=== PATIENT | female | born 1995 | race Caucasian/White ===

== ENCOUNTER 2017-11-06 18:41 | Observation (INO) | payer MEDICAID ==
[2017-11-06] MEDS ORDERED: Ketorolac 30 MG/ML SDV IVPUSH ONE (19:08)
[2017-11-06] MEDS ORDERED: Sodium Chloride 0.9% 1,000 ML IV ONE (19:08)
--- NOTE | 2017-11-06 19:16 | EDM.PDOC ---
ED HPI GENERAL MEDICAL PROBLEM - General Chief Complaint: General Stated Complaint: VOMITING, BODY ACHES Time Seen by Provider: 11/06/17 18:53 Source of Information: Reports: Patient, Family History Limitations: Reports: No Limitations - History of Present Illness INITIAL COMMENTS - FREE TEXT/NARRATIVE: HISTORY AND PHYSICAL: History of present illness: 22-year-old female presenting to emergency department with chief complaint of generalized body aches, fever, nausea and vomiting 5 days. Patient is accompanied by her mother states that her boyfriend brought her to her today and it they are homeless. She has been in bed for the past 5 days. Patient states for the past 5 days she's had intermittent nausea and vomiting approximately 2-3 times a day. No blood in vomitus. She is a also subjective fevers and chills. States that she is at generalized body aches specifically in her back and ribs. She denies any diarrhea but does feel somewhat constipated. She denies any recent foreign travel, or change in diet. She has been taking Advil and Motrin for headache and fever. States that the Motrin seems to be helping. States that she has had a urinary tract infection before and this may be the etiology of her symptoms. However she thinks she may have the flu. Patient currently denies any chest pain, palpitations, shortness breath, syncopal episodes, focal neurologic deficits. 1951- CBC shows leukocytosis of 18,000. Blood cultures have been taken. 1 g of Rocephin ordered. UA positive for significant urinary tract infection. Review of systems: As per history of present illness and below otherwise all systems reviewed and negative. Past medical history: As per history of present illness and as reviewed below otherwise noncontributory. Surgical history: As per history of present illness and as reviewed below otherwise noncontributory. Social history: No reported history of drug or alcohol abuse. Family history: As per history of present illness and as reviewed below otherwise noncontributory. Physical exam: HEENT: Atraumatic, normocephalic, pupils reactive, negative for conjunctival pallor or scleral icterus, mucous membranes moist, throat clear, neck supple, nontender, trachea midline. Lungs: Clear to auscultation, breath sounds equal bilaterally, chest nontender. Heart: S1S2, regular, negative for clicks, rubs, or JVD. Abdomen: Soft, nondistended, nontender. Negative for masses or hepatosplenomegaly. Mild bilateral CVA tenderness Pelvis: Stable nontender. Genitourinary: Deferred. Rectal: Deferred. Extremities: Atraumatic, negative for cords or calf pain. Neurovascular unremarkable. Neuro: Awake, alert, oriented. Cranial nerves II through XII unremarkable. Cerebellum unremarkable. Motor and sensory unremarkable throughout. Exam nonfocal. Diagnostics: CBC, CMP, UA/UC, chest x-ray, hCG, influenza Therapeutics: 1 L normal saline, 1 g Rocephin, 30 mg IV Toradol 1 Impression: Pyelonephritis Sepsis Keep kidney injury/dehydration ] Plan: [] Definitive disposition and diagnosis as appropriate pending reevaluation and review of above. Treatments HEEL ATTACHER: Reports: NSAIDS Other Treatments HEEL ATTACHER: Motrin head Pain Score (Numeric/FACES): 5 body Pain Score (Numeric/FACES): 5 - Related Data Allergies Allergy/AdvReac Type Severity Reaction Status Date / Time No Known Allergies Allergy Verified 11/06/17 19:00 Home Meds: Home Meds . [No Known Home Meds] 11/06/17 [History] Past Medical History - Past Health History Medical/Surgical History: Denies Medical/Surgical History Social & Family History - Family History Family Medical History: Noncontributory - Tobacco Use Smoking Status *Q: Current Every Day Smoker Years of Tobacco use: 5 Packs/Tins Daily: 1 - Recreational Drug Use Recreational Drug Use: No Course - Vital Signs Last Recorded V/S: Last Vital Signs Temp 97.5 F 11/06/17 18:58 Pulse 120 H 11/06/17 18:58 Resp 18 11/06/17 18:58 BP 105/64 11/06/17 18:58 Pulse Ox 99 11/06/17 18:58 - Orders/Labs/Meds Orders: Active Orders 24 hr Category Date Time Status CXR [Chest 2V] [CR] Stat Exams 11/06/17 19:09 Ordered CULTURE BLOOD [BC] Stat Lab 11/06/17 19:55 Ordered CULTURE BLOOD [BC] Stat Lab 11/06/17 19:55 Ordered CULTURE URINE [RM] Stat Lab 11/06/17 19:40 Ordered HCG QUALITATIVE,URINE [URCHEM] Stat Lab 11/06/17 19:40 Ordered INFLUENZA A+B AG SCREEN [RM] Stat Lab 11/06/17 19:40 Ordered LACTATE WITH REFLEX [BG] Stat Lab 11/06/17 19:55 Ordered UA W/MICROSCOPIC [URIN] Stat Lab 11/06/17 19:40 Ordered Sodium Chloride 0.9% [Normal Saline] 1,000 ml Med 11/06/17 19:08 Active IV STAT cefTRIAXone [Rocephin in Dextrose,Iso-Osm 1 GM/50 ML] 1 Med 11/06/17 19:55 Ordered gm Premix Bag 1 bag IV ONETIME Blood Culture x2 Reflex Set [OM.PC] Stat Oth 11/06/17 19:55 Ordered Medication Orders Sodium Chloride (Normal Saline) 1,000 mls @ 999 mls/hr IV STAT ONE Stop: 11/06/17 20:08 Last Admin: 11/06/17 19:19 Dose: 999 mls/hr Ceftriaxone Sodium/Dextrose 1 (gm/ Premix) 50 mls @ 100 mls/hr IV ONETIME ONE Stop: 11/06/17 20:24 Labs: Laboratory Tests 11/06/17 11/06/17 11/06/17 Range/Units 19:16 19:16 19:40 WBC 18.27 H (4.0-11.0) K/uL RBC 4.11 L (4.30-5.90) M/uL Hgb 12.5 (12.0-16.0) g/dL Hct 36.6 (36.0-46.0) % MCV 89.1 (80.0-98.0) fL MCH 30.4 (27.0-32.0) pg MCHC 34.2 (31.0-37.0) g/dL RDW Std Deviation 43.3 (28.0-62.0) fl RDW Coeff of Nicole 13 (11.0-15.0) % Plt Count 252 (150-400) K/uL MPV 10.60 (7.40-12.00) fL Add Manual Diff YES Neutrophils % (Manual) 75 (48.0-80.0) % Band Neutrophils % 1 % Lymphocytes % (Manual) 7 L (16.0-40.0) % Monocytes % (Manual) 16 H (0.0-15.0) % Eosinophils % (Manual) 1 (0.0-7.0) % Nucleated RBC % 0.0 /100WBC Absolute Seg Neuts 13.7 H (1.4-5.7) Band Neutrophils # 0.2 Lymphocytes # (Manual) 1.3 (0.6-2.4) Monocytes # (Manual) 2.9 H (0.0-0.8) Eosinophils # (Manual) 0.2 (0.0-0.7) Nucleated RBCs # 0 K/uL Sodium 136 (136-145) mmol/L Potassium 3.8 (3.5-5.1) mmol/L Chloride 102 (98-107) mmol/L Carbon Dioxide 22.1 (21.0-32.0) mmol/L BUN 15 (7.0-18.0) mg/dL Creatinine 1.5 H (0.6-1.0) mg/dL Est Cr Clr Drug Dosing 58.84 mL/min Estimated GFR (MDRD) 43.0 ml/min Glucose 146 H (74-106) mg/dL Calcium 8.7 (8.5-10.1) mg/dL Total Bilirubin 0.5 (0.2-1.0) mg/dL AST 23 (15-37) IU/L ALT 22 (14-63) IU/L Alkaline Phosphatase 113 (46-116) U/L Total Protein 6.9 (6.4-8.2) g/dL Albumin 2.4 L (3.4-5.0) g/dL Globulin 4.5 H (2.0-3.5) g/dL Albumin/Globulin Ratio 0.5 L (1.3-2.8) Urine Color YELLOW Urine Appearance CLOUDY Urine pH 6.0 (5.0-8.0) Ur Specific [place] 1.025 (1.001-1.035) Urine Protein 100 (NEGATIVE) mg/dL Urine Glucose (UA) NEGATIVE (NEGATIVE) mg/dL Urine Ketones TRACE H (NEGATIVE) mg/dL Urine Occult Blood MODERATE (NEGATIVE) Urine Nitrite NEGATIVE (NEGATIVE) Urine Bilirubin NEGATIVE (NEGATIVE) Urine Urobilinogen 0.2 (<2.0) EU/dL Ur Leukocyte Esterase LARGE (NEGATIVE) Urine RBC 1-2 (0-2/HPF) Urine WBC TO NUMEROU (0-5/HPF) Ur Epithelial Cells FEW (NONE-FEW) Urine Bacteria 1+ H (NEGATIVE) Urine HCG, Qual (NEGATIVE) 06/04/18 Range/Units 19:40 WBC (4.0-11.0) K/uL RBC (4.30-5.90) M/uL Hgb (12.0-16.0) g/dL Hct (36.0-46.0) % MCV (80.0-98.0) fL MCH (27.0-32.0) pg MCHC (31.0-37.0) g/dL RDW Std Deviation (28.0-62.0) fl RDW Coeff of Nicole (11.0-15.0) % Plt Count (150-400) K/uL MPV (7.40-12.00) fL Add Manual Diff Neutrophils % (Manual) (48.0-80.0) % Band Neutrophils % % Lymphocytes % (Manual) (16.0-40.0) % Monocytes % (Manual) (0.0-15.0) % Eosinophils % (Manual) (0.0-7.0) % Nucleated RBC % /100WBC Absolute Seg Neuts (1.4-5.7) Band Neutrophils # Lymphocytes # (Manual) (0.6-2.4) Monocytes # (Manual) (0.0-0.8) Eosinophils # (Manual) (0.0-0.7) Nucleated RBCs # K/uL Sodium (136-145) mmol/L Potassium (3.5-5.1) mmol/L Chloride (98-107) mmol/L Carbon Dioxide (21.0-32.0) mmol/L BUN (7.0-18.0) mg/dL Creatinine (0.6-1.0) mg/dL Est Cr Clr Drug Dosing mL/min Estimated GFR (MDRD) ml/min Glucose (74-106) mg/dL Calcium (8.5-10.1) mg/dL Total Bilirubin (0.2-1.0) mg/dL AST (15-37) IU/L ALT (14-63) IU/L Alkaline Phosphatase (46-116) U/L Total Protein (6.4-8.2) g/dL Albumin (3.4-5.0) g/dL Globulin (2.0-3.5) g/dL Albumin/Globulin Ratio (1.3-2.8) Urine Color Urine Appearance Urine pH (5.0-8.0) Ur Specific [place] (1.001-1.035) Urine Protein (NEGATIVE) mg/dL Urine Glucose (UA) (NEGATIVE) mg/dL Urine Ketones (NEGATIVE) mg/dL Urine Occult Blood (NEGATIVE) Urine Nitrite (NEGATIVE) Urine Bilirubin (NEGATIVE) Urine Urobilinogen (<2.0) EU/dL Ur Leukocyte Esterase (NEGATIVE) Urine RBC (0-2/HPF) Urine WBC (0-5/HPF) Ur Epithelial Cells (NONE-FEW) Urine Bacteria (NEGATIVE) Urine HCG, Qual NEGATIVE (NEGATIVE) Meds: Medications Generic Name Dose Route Start Last Admin Trade Name Freq PRN Reason Stop Dose Admin Sodium Chloride 1,000 mls @ 999 mls/hr 11/06/17 19:08 11/06/17 19:19 Normal Saline IV 11/06/17 20:08 999 mls/hr STAT ONE Administration Ceftriaxone Sodium/Dextrose 1 50 mls @ 100 mls/hr 11/06/17 19:55 gm/ Premix IV 11/06/17 20:24 ONETIME ONE Discontinued Medications Generic Name Dose Route Start Last Admin Trade Name Freq PRN Reason Stop Dose Admin Ketorolac Tromethamine 30 mg 11/06/17 19:08 11/06/17 19:19 Toradol IVPUSH 11/06/17 19:09 30 mg ONETIME ONE Administration Departure - Discharge Information Referrals: PCP,None [Primary Care Provider] - Forms: ED Department Discharge - My Orders Last 24 Hours: My Active Orders 11/06/17 19:08 Sodium Chloride 0.9% [Normal Saline] 1,000 ml IV STAT 11/06/17 19:09 CXR [Chest 2V] [CR] Stat 11/06/17 19:40 CULTURE URINE [RM] Stat HCG QUALITATIVE,URINE [URCHEM] Stat INFLUENZA A+B AG SCREEN [RM] Stat UA W/MICROSCOPIC [URIN] Stat 11/06/17 19:55 CULTURE BLOOD [BC] Stat CULTURE BLOOD [BC] Stat LACTATE WITH REFLEX [BG] Stat cefTRIAXone [Rocephin in Dextrose,Iso-Osm 1 GM/50 ML] 1 gm Premix Bag 1 bag IV ONETIME Blood Culture x2 Reflex Set [OM.PC] Stat - Assessment/Plan Last 24 Hours: My Active Orders 11/06/17 19:08 Sodium Chloride 0.9% [Normal Saline] 1,000 ml IV STAT 11/06/17 19:09 CXR [Chest 2V] [CR] Stat 11/06/17 19:40 CULTURE URINE [RM] Stat HCG QUALITATIVE,URINE [URCHEM] Stat INFLUENZA A+B AG SCREEN [RM] Stat UA W/MICROSCOPIC [URIN] Stat 11/06/17 19:55 CULTURE BLOOD [BC] Stat CULTURE BLOOD [BC] Stat LACTATE WITH REFLEX [BG] Stat cefTRIAXone [Rocephin in Dextrose,Iso-Osm 1 GM/50 ML] 1 gm Premix Bag 1 bag IV ONETIME Blood Culture x2 Reflex Set [OM.PC] Stat
[2017-11-06] MEDS ORDERED: cefTRIAXone 1 GM in Premix Bag 1 BAG IV ONE (19:55)
[2017-11-07] MEDS ORDERED: Acetaminophen 325 MG Tab PO PRN (01:28)
[2017-11-07] MEDS: Sodium Chloride 0.9% 1,000 ML IV SCH ×3 (03:29→19:58)
[2017-11-07] MEDS ORDERED: Sodium Chloride 0.9% 1,000 ML IV ONE (07:21)
[2017-11-07] MEDS ORDERED: Ondansetron 4 MG/2 ML SDV IVPUSH PRN (07:51)
[2017-11-07] MEDS ORDERED: Ketorolac 15 MG/ML SDV IVPUSH PRN (08:12)
--- NOTE | 2017-11-07 08:14 | PCM.HP ---
H&P History of Present Illness - General Date of Service: 11/07/17 Admit Problem/Dx: Admission Diagnosis/Problem Admission Diagnosis/Problem Pyelonephritis Source of Information: Patient, Family (Mother at bedside) History Limitations: Reports: No Limitations - History of Present Illness Initial Comments - Free Text/Narative: This 22 year old female with pmh of methamphetamine and Klonipin use presented to the ED last night with her mother with complaints of not feeling well since with nausea/vomiting, fevers, chills, body aches and flank pain. She reports this all started last and progressively worsened. Per report, she is homeless and her boyfriend brought her to her mother's reporting she had been in bed since not feeling well. She reports some lower abdominal pain and flank pain. She denies chest pain or SOB. Slight chest tightness with breathing but no wheezing. She reports some lower abdominal pain, some dysuria, no constipation or diarrhea. She reports bilateral flank pain and lower rib pain. No headaches or URI symptoms. She denies any other medical history besides asthma in which she uses albuterol, but she currently is out of. She does report using meth and Klonipin recreationally in the last year, but not recently. She currently is being mointored with transdermal patches for drug use. She smokes 1/2-1 ppd, but has not smoked since and declines any cessation medications currently. No alcohol use. In the ED leukocytosis noted at 18,000, lactate 1.7, BUN 15, Cr 1.5 UA neg nitritie, large leukocyte esterase, WBC too numerous to count +1 bacteria, neg HCG. CXR negative. Abd/Pelvis CT revealed R perinephric stranding, no stones or hydronephrosis noted. Influenza negative. She was treated with Rocephin 1 gm IV , 1 L NS bolus. UC and BC pending. She was noted to be slightly hypotensive with tachycardia. Afebrile. She was admitted observation for acute pyelonephritis. head Pain Score (Numeric/FACES): 5 body Pain Score (Numeric/FACES): 1 - Related Data Allergies/Adverse Reactions: Allergies Allergy/AdvReac Type Severity Reaction Status Date / Time No Known Allergies Allergy Verified 11/06/17 19:00 Home Medications: Home Meds . [No Known Home Meds] 11/06/17 [History] Past Medical History - Past Health History Medical/Surgical History: Denies Medical/Surgical History Cardiovascular History: 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. Denies: Afib, Blood Clots/VTE/DVT, High Cholesterol, Hypertension, [place] Respiratory History: Reports: Asthma Gastrointestinal History: 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. Denies: GERD Genitourinary History: 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. Denies: Chronic Renal Insuffiency 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 History: 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 Neurological History: 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. Denies: CVA, TIA Psychiatric History: Reports: Addiction (Currently being monitored for methamphetamine use), Anxiety, Depression Endocrine/Metabolic History: 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. Denies: Diabetes, Type II - Infectious Disease History Infectious Disease History: 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 - Past Surgical History Respiratory Surgical History: 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 GI Surgical History: 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 Social & Family History - Family History Family Medical History: Noncontributory - Tobacco Use Smoking Status *Q: Current Every Day Smoker Years of Tobacco use: 5 Packs/Tins Daily: 0.5 Month/Year Tobacco Last Used: 11-02-2017 Smoking Cessation Information Provided To Patient: Yes Second Hand Smoke Exposure: Yes - Caffeine Use Caffeine Use: Reports: Coffee - Alcohol Use Alcohol Use History: No - Recreational Drug Use Recreational Drug Use: Yes Drug Use in Last 12 Months: Yes Recreational Drug Type: Reports: Methamphetamine Recreational Drug Use Frequency: Not Used In Over 3 Months Recreational Drug Route: Denies: Intravenous - Living Situation & Occupation Living situation: Reports: Single, Other (reports being homeless.) Occupation: Unemployed H&P Review of Systems - Review of Systems: Review Of Systems: See Below General: Reports: Fever, Chills, Malaise, Weakness, Fatigue, Decreased Appetite HEENT: Reports: No Symptoms. Denies: Headaches, Post Nasal Drip, Sinus Congestion, Visual Changes Pulmonary: Reports: No Symptoms. Denies: Shortness of Breath, Wheezing, Cough, Sputum Cardiovascular: Reports: No Symptoms. Denies: Chest Pain, Palpitations, Lightheadedness Gastrointestinal: Reports: Abdominal Pain (lower abdomen), Nausea, Vomiting. Denies: Black Stool, Bloody Stool, Diarrhea Genitourinary: Reports: Dysuria, Burning, Pain, Urgency, Flank Pain. Denies: Hematuria 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: Reports: No Symptoms Skin: Reports: No Symptoms Psychiatric: Reports: No Symptoms Neurological: Reports: No Symptoms Hematologic/Lymphatic: Reports: No Symptoms Immunologic: Reports: No Symptoms Exam - Exam Exam: See Below - Vital Signs Vital Signs: Last Vital Signs Temp 98.6 F 11/07/17 07:30 Pulse 109 H 11/07/17 07:30 Resp 16 11/07/17 07:30 BP 110/71 11/07/17 07:30 Pulse Ox 100 11/07/17 07:30 Weight: 71.532 kg - Exam Quality Assessment: DVT Prophylaxis. No: Supplemental Oxygen General: Alert, Oriented, Cooperative HEENT: Conjunctiva Clear, Mucosa Moist & [place], Posterior Pharynx Clear Neck: Supple, Trachea Midline, 2 Lungs: Clear to Auscultation, Normal Respiratory Effort. No: Wheezing Cardiovascular: Regular Rate, Regular Rhythm GI/Abdominal Exam: Normal Bowel Sounds, Soft, Tender (slightly tender to lower abdomen) Back Exam: Normal Inspection, Full Range of Motion, CVA Tenderness (L), CVA Tenderness (R) Extremities: Normal Inspection, Normal Range of Motion, Non-Tender, No Pedal Edema, Normal Capillary Refill Skin: Warm, Dry, Intact Neurological: Cranial Nerves Intact Neuro Extensive - Mental Status: Alert, Oriented x3, Normal Mood/Affect Neuro Extensive - Motor, Sensory, Reflexes: CN II-XII Intact Psychiatric: Alert, Normal Affect, Normal Mood - Patient Data Lab Results Last 24 hrs: Laboratory Results - last 24 hr 11/06/17 11/06/17 11/06/17 Range/Units 19:16 19:16 19:40 WBC 18.27 H (4.0-11.0) K/uL RBC 4.11 L (4.30-5.90) M/uL Hgb 12.5 (12.0-16.0) g/dL Hct 36.6 (36.0-46.0) % MCV 89.1 (80.0-98.0) fL MCH 30.4 (27.0-32.0) pg MCHC 34.2 (31.0-37.0) g/dL RDW Std Deviation 43.3 (28.0-62.0) fl RDW Coeff of Nicole 13 (11.0-15.0) % Plt Count 252 (150-400) K/uL MPV 10.60 (7.40-12.00) fL Add Manual Diff YES Neutrophils % (Manual) 75 (48.0-80.0) % Band Neutrophils % 1 % Lymphocytes % (Manual) 7 L (16.0-40.0) % Monocytes % (Manual) 16 H (0.0-15.0) % Eosinophils % (Manual) 1 (0.0-7.0) % Nucleated RBC % 0.0 /100WBC Absolute Seg Neuts 13.7 H (1.4-5.7) Band Neutrophils # 0.2 Lymphocytes # (Manual) 1.3 (0.6-2.4) Monocytes # (Manual) 2.9 H (0.0-0.8) Eosinophils # (Manual) 0.2 (0.0-0.7) Nucleated RBCs # 0 K/uL Lactate (0.20-2.00) mmol/L Sodium 136 (136-145) mmol/L Potassium 3.8 (3.5-5.1) mmol/L Chloride 102 (98-107) mmol/L Carbon Dioxide 22.1 (21.0-32.0) mmol/L BUN 15 (7.0-18.0) mg/dL Creatinine 1.5 H (0.6-1.0) mg/dL Est Cr Clr Drug Dosing 58.84 mL/min Estimated GFR (MDRD) 43.0 ml/min Glucose 146 H (74-106) mg/dL Calcium 8.7 (8.5-10.1) mg/dL Total Bilirubin 0.5 (0.2-1.0) mg/dL AST 23 (15-37) IU/L ALT 22 (14-63) IU/L Alkaline Phosphatase 113 (46-116) U/L Total Protein 6.9 (6.4-8.2) g/dL Albumin 2.4 L (3.4-5.0) g/dL Globulin 4.5 H (2.0-3.5) g/dL Albumin/Globulin Ratio 0.5 L (1.3-2.8) Urine Color YELLOW Urine Appearance CLOUDY Urine pH 6.0 (5.0-8.0) Ur Specific [place] 1.025 (1.001-1.035) Urine Protein 100 (NEGATIVE) mg/dL Urine Glucose (UA) NEGATIVE (NEGATIVE) mg/dL Urine Ketones TRACE H (NEGATIVE) mg/dL Urine Occult Blood MODERATE (NEGATIVE) Urine Nitrite NEGATIVE (NEGATIVE) Urine Bilirubin NEGATIVE (NEGATIVE) Urine Urobilinogen 0.2 (<2.0) EU/dL Ur Leukocyte Esterase LARGE (NEGATIVE) Urine RBC 1-2 (0-2/HPF) Urine WBC TO NUMEROU (0-5/HPF) Ur Epithelial Cells FEW (NONE-FEW) Urine Bacteria 1+ H (NEGATIVE) Urine HCG, Qual (NEGATIVE) 11/06/17 11/06/17 11/07/17 Range/Units 19:40 20:03 05:50 WBC 17.50 H (4.0-11.0) K/uL RBC 3.82 L (4.30-5.90) M/uL Hgb 11.4 L (12.0-16.0) g/dL Hct 33.5 L (36.0-46.0) % MCV 87.7 (80.0-98.0) fL MCH 29.8 (27.0-32.0) pg MCHC 34.0 (31.0-37.0) g/dL RDW Std Deviation 43.0 (28.0-62.0) fl RDW Coeff of Nicole 13 (11.0-15.0) % Plt Count 243 (150-400) K/uL MPV 10.20 (7.40-12.00) fL Add Manual Diff YES Neutrophils % (Manual) 62 (48.0-80.0) % Band Neutrophils % 19 % Lymphocytes % (Manual) 13 L (16.0-40.0) % Monocytes % (Manual) 6 (0.0-15.0) % Eosinophils % (Manual) (0.0-7.0) % Nucleated RBC % 0.0 /100WBC Absolute Seg Neuts 10.9 H (1.4-5.7) Band Neutrophils # 3.3 Lymphocytes # (Manual) 2.3 (0.6-2.4) Monocytes # (Manual) 1.1 H (0.0-0.8) Eosinophils # (Manual) (0.0-0.7) Nucleated RBCs # 0 K/uL Lactate 1.7 (0.20-2.00) mmol/L Sodium (136-145) mmol/L Potassium (3.5-5.1) mmol/L Chloride (98-107) mmol/L Carbon Dioxide (21.0-32.0) mmol/L BUN (7.0-18.0) mg/dL Creatinine (0.6-1.0) mg/dL Est Cr Clr Drug Dosing mL/min Estimated GFR (MDRD) ml/min Glucose (74-106) mg/dL Calcium (8.5-10.1) mg/dL Total Bilirubin (0.2-1.0) mg/dL AST (15-37) IU/L ALT (14-63) IU/L Alkaline Phosphatase (46-116) U/L Total Protein (6.4-8.2) g/dL Albumin (3.4-5.0) g/dL Globulin (2.0-3.5) g/dL Albumin/Globulin Ratio (1.3-2.8) Urine Color Urine Appearance Urine pH (5.0-8.0) Ur Specific [place] (1.001-1.035) Urine Protein (NEGATIVE) mg/dL Urine Glucose (UA) (NEGATIVE) mg/dL Urine Ketones (NEGATIVE) mg/dL Urine Occult Blood (NEGATIVE) Urine Nitrite (NEGATIVE) Urine Bilirubin (NEGATIVE) Urine Urobilinogen (<2.0) EU/dL Ur Leukocyte Esterase (NEGATIVE) Urine RBC (0-2/HPF) Urine WBC (0-5/HPF) Ur Epithelial Cells (NONE-FEW) Urine Bacteria (NEGATIVE) Urine HCG, Qual NEGATIVE (NEGATIVE) 11/07/17 Range/Units 05:50 WBC (4.0-11.0) K/uL RBC (4.30-5.90) M/uL Hgb (12.0-16.0) g/dL Hct (36.0-46.0) % MCV (80.0-98.0) fL MCH (27.0-32.0) pg MCHC (31.0-37.0) g/dL RDW Std Deviation (28.0-62.0) fl RDW Coeff of Nicole (11.0-15.0) % Plt Count (150-400) K/uL MPV (7.40-12.00) fL Add Manual Diff Neutrophils % (Manual) (48.0-80.0) % Band Neutrophils % % Lymphocytes % (Manual) (16.0-40.0) % Monocytes % (Manual) (0.0-15.0) % Eosinophils % (Manual) (0.0-7.0) % Nucleated RBC % /100WBC Absolute Seg Neuts (1.4-5.7) Band Neutrophils # Lymphocytes # (Manual) (0.6-2.4) Monocytes # (Manual) (0.0-0.8) Eosinophils # (Manual) (0.0-0.7) Nucleated RBCs # K/uL Lactate (0.20-2.00) mmol/L Sodium 138 (136-145) mmol/L Potassium 3.7 (3.5-5.1) mmol/L Chloride 107 (98-107) mmol/L Carbon Dioxide 21.4 (21.0-32.0) mmol/L BUN 16 (7.0-18.0) mg/dL Creatinine 1.2 H (0.6-1.0) mg/dL Est Cr Clr Drug Dosing 73.55 mL/min Estimated GFR (MDRD) 55.7 ml/min Glucose 134 H (74-106) mg/dL Calcium 8.3 L (8.5-10.1) mg/dL Total Bilirubin (0.2-1.0) mg/dL AST (15-37) IU/L ALT (14-63) IU/L Alkaline Phosphatase (46-116) U/L Total Protein (6.4-8.2) g/dL Albumin (3.4-5.0) g/dL Globulin (2.0-3.5) g/dL Albumin/Globulin Ratio (1.3-2.8) Urine Color Urine Appearance Urine pH (5.0-8.0) Ur Specific [place] (1.001-1.035) Urine Protein (NEGATIVE) mg/dL Urine Glucose (UA) (NEGATIVE) mg/dL Urine Ketones (NEGATIVE) mg/dL Urine Occult Blood (NEGATIVE) Urine Nitrite (NEGATIVE) Urine Bilirubin (NEGATIVE) Urine Urobilinogen (<2.0) EU/dL Ur Leukocyte Esterase (NEGATIVE) Urine RBC (0-2/HPF) Urine WBC (0-5/HPF) Ur Epithelial Cells (NONE-FEW) Urine Bacteria (NEGATIVE) Urine HCG, Qual (NEGATIVE) Result Diagrams: 11/07/17 05:50 11/07/17 05:50 Chuck Results Last 24 hrs: Microbiology 11/06/17 19:40 Influenza Type A Antigen Screen - Final Nasopharyngeal Swab NEGATIVE INFLUENZA A VIRUS AG Influenza Type B Antigen Screen - Final NEGATIVE INFLUENZA B VIRUS AG *Q Meaningful Use (ADM) - VTE Risk Assess *Q Each Risk Factor Represents 1 Point: None Total Score 1 Point Risk Factors: 0 Each Risk Factor Represents 2 Points: None Total Score 2 Point Risk Factors: 0 Each Risk Factor Represents 3 Points: None Total Score 3 Point Risk Factors: 0 Each Risk Factor Represents 5 Points: None Total Score 5 Point Risk Factors: 0 Venous Thromboembolism Risk Factor Score *Q: 0 - Problem List (1) Pyelonephritis SNOMED Code(s): 24380960 ICD Code: N12 - TUBULO-INTERSTITIAL NEPHRITIS, NOT SPCF ACUTE OR CHRONIC Status: Acute Current Visit: Yes (2) Asthma SNOMED Code(s): 122561971 ICD Code: J45.909 - UNSPECIFIED ASTHMA, UNCOMPLICATED Status: Chronic Current Visit: Yes Qualifiers: Asthma severity: mild Asthma persistence: intermittent Asthma complication type: uncomplicated Qualified Code(s): J45.20 - Mild intermittent asthma, uncomplicated (3) Polysubstance abuse SNOMED Code(s): 906579980 ICD Code: F19.10 - OTHER PSYCHOACTIVE SUBSTANCE ABUSE, UNCOMPLICATED Status : Chronic Current Visit: No Problem Details: not currently using, has not used in over 3 months. Never intravensously injected. Problem List Initiated/Reviewed/Updated: Yes Orders Last 24hrs: Active Orders 24 hr Category Date Time Status Admission Status [Patient Status] [ADT] Routine ADT 11/06/17 21:40 Active Intake and Output [RC] QSHIFT Care 11/07/17 08:12 Ordered May Shower [RC] ASDIRECTED Care 11/07/17 08:12 Ordered Oxygen Therapy [RC] PRN Care 11/07/17 08:12 Ordered Up ad Marita [RC] ASDIRECTED Care 11/07/17 08:12 Ordered VTE/DVT Education [RC] PER UNIT ROUTINE Care 11/07/17 08:12 Ordered Vital Signs [RC] Q4H Care 11/07/17 08:12 Ordered Regular Diet [DIET] Diet 11/07/17 Breakfast Active Abdomen Pelvis wo Cont [CT] Stat Exams 11/06/17 20:01 Taken CXR [Chest 2V] [CR] Stat Exams 11/06/17 19:09 Taken BMP [BASIC METABOLIC PANEL,BMP] [CHEM] AM Lab 11/08/17 05:11 Ordered BMP [BASIC METABOLIC PANEL,BMP] [CHEM] AM Lab 11/09/17 05:11 Ordered BMP [BASIC METABOLIC PANEL,BMP] [CHEM] AM Lab 11/10/17 05:11 Ordered CBC WITH AUTO DIFF [HEME] AM Lab 11/08/17 05:11 Ordered CBC WITH AUTO DIFF [HEME] AM Lab 11/09/17 05:11 Ordered CBC WITH AUTO DIFF [HEME] AM Lab 11/10/17 05:11 Ordered CULTURE BLOOD [BC] Stat Lab 11/06/17 20:03 Received CULTURE BLOOD [BC] Stat Lab 11/06/17 20:50 Received CULTURE URINE [RM] Stat Lab 11/06/17 19:40 Ordered HCG QUALITATIVE,URINE [URCHEM] Stat Lab 11/06/17 19:40 Ordered INFLUENZA A+B AG SCREEN [RM] Stat Lab 11/06/17 19:40 Ordered UA W/MICROSCOPIC [URIN] Stat Lab 11/06/17 19:40 Ordered Acetaminophen [Tylenol] Med 11/07/17 01:28 Active 650 mg PO Q4H PRN Ketorolac [Toradol] Med 11/07/17 08:12 Ordered 15 mg IV Q8H PRN Ondansetron [Zofran] Med 11/07/17 07:51 Active 4 mg IVPUSH Q4H PRN Sodium Chloride 0.9% [Normal Saline] 1,000 ml Med 11/07/17 07:21 Active IV .Bolus Sodium Chloride 0.9% [Normal Saline] 1,000 ml Med 11/07/17 01:30 Active IV ASDIRECTED cefTRIAXone [Rocephin] 1 gm Med 11/07/17 20:00 Active Sodium Chloride 0.9% [Normal Saline] 50 ml IV Q24H Blood Culture x2 Reflex Set [OM.PC] Stat Oth 11/06/17 19:55 Ordered Sequential Compression Device [OM.PC] Per Unit Routine Oth 11/07/17 08:12 Ordered Resuscitation Status Routine Resus Stat 11/07/17 08:12 Ordered Medication Orders Acetaminophen (Tylenol) 650 mg PO Q4H PRN PRN Reason: Pain Last Admin: 11/07/17 07:28 Dose: 650 mg Sodium Chloride (Normal Saline) 1,000 mls @ 125 mls/hr IV ASDIRECTED MAGDALENO Last Admin: 06/05/18 03:29 Dose: 125 mls/hr Ceftriaxone Sodium 1 gm/ (Sodium Chloride) 50 mls @ 100 mls/hr IV Q24H MAGDALENO Sodium Chloride (Normal Saline) 1,000 mls @ 999 mls/hr IV .Bolus ONE Stop: 11/07/17 08:21 Last Admin: 11/07/17 07:29 Dose: 999 mls/hr Ketorolac Tromethamine (Toradol) 15 mg IV Q8H PRN PRN Reason: Pain (moderate 4-6) Ondansetron HCl (Zofran) 4 mg IVPUSH Q4H PRN PRN Reason: Nausea Last Admin: 11/07/17 08:10 Dose: 4 mg Assessment/Plan Comment:: This 22 year old female admitted with acute pyelonephritis 1. Acute pyelonephritis: Continue Rocephin. Given 1 L bolus this morning due to tachycardia, slightly warm feeling but no fever noted. BP borderline. Leukocytosis improved only slightly. BC and UC pending. COntinue current treatment plan. Monitor labwork in the morning. Tylenol helping with pain. currently denies wanting narcotics due to being monitored for polysubstance abuse. 2. Asthma: Stable. Will order Albuterol as needed. VTE prophylaxis: SCDs Dispo: 1-2 days pending cultures and improvement.
[2017-11-07] MEDS ORDERED: Albuterol 0.083% 2.5 MG/3 ML Neb Soln NEB PRN (08:59)
--- NOTE | 2017-11-07 09:26 | CR ---
EXAM DATE: 11/06/17 PATIENT'S AGE: 22 Patient: DARNELL RAMOS Facility: [place], [place] Site . Site : 1995 Study: XRay Chest [id number]/4/2018 8:13:48 PM Ordering Physician: Anders Jackson Final Report: INDICATION: Cough for 5 days. TECHNIQUE: Chest radiograph 2 views COMPARISON: 03/27/2017. FINDINGS: Cardiovascular and mediastinum: The heart silhouette is normal in size and morphology. The mediastinum is normal in appearance. Lungs and pleural spaces: Both lungs are unremarkable in appearance. No sign of pleural effusion seen. No pneumothorax is identified. Bones and soft tissues: No significant findings. IMPRESSION: 1. No acute cardiopulmonary disease is seen. Dictated by Eliazar Pena MD @ 11/06/2017 8:30:52 PM Dictated by: Eliazar Pena MD @ 11/06/2017 20:30:56 (Electronic Signature) Report Signed by Proxy. [facility]
--- NOTE | 2017-11-07 09:27 | CT ---
EXAM DATE: 11/06/17 PATIENT'S AGE: 22 Patient: DARNELL RAMOS Facility: [place], [place] Site . Site : 1995 Study: CT Abdomen/Pelvis W/O [id number]/4/[id number] 8:20:01 PM Ordering Physician: Anders Jackson Final Report: INDICATION: Generalized abdominal pain and a history of UTIs TECHNIQUE: CT abdomen and pelvis without contrast. COMPARISON: None FINDINGS: Lower chest: Unremarkable. Liver: Unremarkable. Spleen: Unremarkable. Pancreas: Unremarkable. Gallbladder and bile ducts: Unremarkable. Kidneys: Right perinephric fat stranding. No kidney or ureteral stones and no hydronephrosis. Adrenal glands: Unremarkable. GI tract: There is straightening noted posterior to the mid ascending colon but no adjacent bowel wall thickening. Findings may be related to adjacent right perinephric fat stranding. Appendix is normal. Vascular structures: Unremarkable. Lymph nodes: Unremarkable. Miscellaneous: Unremarkable. No free air or significant free fluid. Pelvic Organs: Unremarkable. Bones: Unremarkable for age. IMPRESSION: No urinary tract stones or hydronephrosis. Right perinephric fat stranding. Findings may be related to patient`s known urinary tract infection. Findings discussed on 11/06/2017 at 8:[address] Mcnamara. Dictated by Tray Louie MD @ 11/06/2017 8:50:19 PM Please note that all CT scans at this facility use dose modulation, iterative reconstruction, and/or weight-based dosing when appropriate to reduce radiation dose to as low as reasonably achievable. Dictated by: Tray Louie MD @ 11/06/2017 20:50:26 (Electronic Signature) Report Signed by Proxy. [facility]
[2017-11-07] MEDS ORDERED: cefTRIAXone 1,000 MG in Sodium Chloride 0.9% 50 ML IV SCH (20:00)
[2017-11-07] MEDS ORDERED: cefTRIAXone 1 GM in Sodium Chloride 0.9% 50 ML IV SCH (20:00)
[2017-11-08] MEDS: Sodium Chloride 0.9% 1,000 ML IV SCH (04:41)
[2017-11-08 06:07] LABS: CHLORIDE,CL 109 mmol/L (98-107); SODIUM,NA 141 mmol/L (136-145)
[2017-11-08] MEDS ORDERED: Levofloxacin 500 MG Tab PO SCH (10:00)
--- NOTE | 2017-11-08 10:05 | PCM.DCSUM1 ---
Discharge Summary - Hospital Course Brief History: This 22 year old female with pmh of methamphetamine and Klonipin use presented to the ED last night with her mother with complaints of not feeling well since with nausea/vomiting, fevers, chills, body aches and flank pain. She reports this all started last and progressively worsened. Per report, she is homeless and her boyfriend brought her to her mother's reporting she had been in bed since not feeling well. She reports some lower abdominal pain and flank pain. She denies chest pain or SOB. Slight chest tightness with breathing but no wheezing. She reports some lower abdominal pain, some dysuria, no constipation or diarrhea. She reports bilateral flank pain and lower rib pain. No headaches or URI symptoms. She denies any other medical history besides asthma in which she uses albuterol, but she currently is out of. She does report using meth and Klonipin recreationally in the last year, but not recently. She currently is being mointored with transdermal patches for drug use. She smokes 1/2-1 ppd, but has not smoked since and declines any cessation medications currently. No alcohol use. In the ED leukocytosis noted at 18,000, lactate 1.7, BUN 15, Cr 1.5 UA neg nitritie, large leukocyte esterase, WBC too numerous to count +1 bacteria, neg HCG. CXR negative. Abd/Pelvis CT revealed R perinephric stranding , no stones or hydronephrosis noted. Influenza negative. She was treated with Rocephin 1 gm IV, 1 L NS bolus. UC and BC pending. She was noted to be slightly hypotensive with tachycardia. Afebrile. She was admitted observation for acute pyelonephritis. - Discharge Data Discharge Date: 11/08/17 Discharge Disposition: Home, Self-Care 01 Condition: Good - Discharge Diagnosis/Problem(s) (1) Pyelonephritis SNOMED Code(s): 82742602 ICD Code: N12 - TUBULO-INTERSTITIAL NEPHRITIS, NOT SPCF ACUTE OR CHRONIC Status: Acute Current Visit: Yes (2) Asthma SNOMED Code(s): 746927057 ICD Code: J45.909 - UNSPECIFIED ASTHMA, UNCOMPLICATED Status: Chronic Current Visit: Yes Qualifiers: Asthma severity: mild Asthma persistence: intermittent Asthma complication type: uncomplicated Qualified Code(s): J45.20 - Mild intermittent asthma, uncomplicated (3) Polysubstance abuse SNOMED Code(s): 068528382 ICD Code: F19.10 - OTHER PSYCHOACTIVE SUBSTANCE ABUSE, UNCOMPLICATED Status : Chronic Current Visit: No Problem Details: not currently using, has not used in over 3 months. Never intravensously injected. - Patient Instructions Diet: Regular Diet as Tolerated Activity: As Tolerated, No Strenuous Activities Showering/Bathing: May Shower Notify Provider of: Fever, Increased Pain, Swelling and Redness, Drainage, Nausea and/or Vomiting - Discharge Plan Prescriptions/Med Rec: Albuterol [Ventolin HFA] 1 - 2 puff INH Q4H PRN #1 inhaler PRN Reason: asthma Levofloxacin [Levaquin] 750 mg PO DAILY #8 tab Home Medications: Home Meds Albuterol [Ventolin HFA] 1 - 2 puff INH Q4H PRN #1 inhaler 11/08/17 [Rx] Levofloxacin [Levaquin] 750 mg PO DAILY #8 tab 11/08/17 [Rx] Patient Handouts: Pyelonephritis, Adult, [id number], Albuterol inhalation aerosol, Levofloxacin tablets Referrals: Amos Palacios MD [Resident] - 11/21/17 2:30 pm - Discharge Summary/Plan Comment DC Time >30 min.: No Discharge Summary/Plan Comment: Discharge Diagnoses: Pyelonephritis Juaquin was admitted secondary to pyelonephritis. She was admitted and treated with Rocephin 1 gm IV daily. Leukocytosis improve day 1 to 17,000 and today it is now 13,000. She is afebrile. BC negative x 1 day. UC returned with E Coli. She is eating and drinking well, without nausea or vomiting. She denies flank pain any longer and is eager to be discharged home. Mom at bedside who is ok with this as well. She will be discharged home with Levaquin 750 mg for 8 more days, totaling 10 day treatment for pyelonephritis. She is to return to the clinic of ED if any concerns of flank pain, fevers or dysuria return. She will have follow up with PCP in 1 week to insure continued improvement. - General Info Date of Service: 11/08/17 Admission Dx/Problem (Free Text: Admission Diagnosis/Problem Admission Diagnosis/Problem Pyelonephritis Subjective Update: Feeling good this morning, having no more pain. and no further dysuria. Eager to be discharged home. Mom at bedside. Eat and drinking well, without nausea. Functional Status: Reports: Pain Controlled, Tolerating Diet, Ambulating, Urinating - Review of Systems General: Reports: Fatigue. Denies: Fever, Weakness, Malaise HEENT: Reports: No Symptoms. Denies: Headaches, Sore Throat, Rhinitis, Visual Changes Pulmonary: Reports: No Symptoms. Denies: Shortness of Breath Cardiovascular: Reports: No Symptoms. Denies: Chest Pain Gastrointestinal: Reports: No Symptoms. Denies: Abdominal Pain, Nausea, Vomiting Genitourinary: Reports: No Symptoms. Denies: Dysuria, Frequency, Burning, Hematuria, Retention, Flank Pain Skin: Reports: No Symptoms Neurological: Reports: No Symptoms Psychiatric: Reports: No Symptoms - Patient Data Vitals - Most Recent: Last Vital Signs Temp 99.7 F 11/08/17 08:00 Pulse 110 H 11/08/17 08:00 Resp 16 11/08/17 08:00 BP 104/56 L 11/08/17 08:00 Pulse Ox 97 11/08/17 08:12 Weight - Most Recent: 71.532 kg I&O - Last 24 hours: Intake & Output 11/07/17 11/08/17 11/08/17 22:59 06:59 14:59 Intake Total 1420 2862 Output Total 1400 1400 Balance 20 1462 Lab Results - Last 24 hrs: Laboratory Results - last 24 hr 11/08/17 11/08/17 Range/Units 05:15 05:15 WBC 13.39 H (4.0-11.0) K/uL RBC 3.49 L (4.30-5.90) M/uL Hgb 10.5 L (12.0-16.0) g/dL Hct 30.8 L (36.0-46.0) % MCV 88.3 (80.0-98.0) fL MCH 30.1 (27.0-32.0) pg MCHC 34.1 (31.0-37.0) g/dL RDW Std Deviation 43.6 (28.0-62.0) fl RDW Coeff of Nicole 14 (11.0-15.0) % Plt Count 261 (150-400) K/uL MPV 9.80 (7.40-12.00) fL Add Manual Diff YES Neutrophils % (Manual) 60 (48.0-80.0) % Band Neutrophils % 11 % Lymphocytes % (Manual) 24 (16.0-40.0) % Monocytes % (Manual) 5 (0.0-15.0) % Nucleated RBC % 0.0 /100WBC Absolute Seg Neuts 8.0 H (1.4-5.7) Band Neutrophils # 1.5 Lymphocytes # (Manual) 3.2 H (0.6-2.4) Monocytes # (Manual) 0.7 (0.0-0.8) Nucleated RBCs # 0 K/uL Sodium 141 (136-145) mmol/L Potassium 3.6 (3.5-5.1) mmol/L Chloride 109 H (98-107) mmol/L Carbon Dioxide 22.3 (21.0-32.0) mmol/L BUN 12 (7.0-18.0) mg/dL Creatinine 1.1 H (0.6-1.0) mg/dL Est Cr Clr Drug Dosing 80.24 mL/min Estimated GFR (MDRD) > 60.0 ml/min Glucose 107 H (74-106) mg/dL Calcium 7.9 L (8.5-10.1) mg/dL KARTIK Results - Last 24 hrs: Microbiology 11/06/17 19:40 Urine Culture - Final Urine, Clean Catch Escherichia Coli 11/06/17 20:50 Aerobic Blood Culture - Preliminary Blood - Venous - Lab Draw NO GROWTH AFTER 1 DAY Anaerobic Blood Culture - Preliminary NO GROWTH AFTER 1 DAY 11/06/17 20:03 Aerobic Blood Culture - Preliminary Blood - Venous NO GROWTH AFTER 1 DAY Anaerobic Blood Culture - Preliminary NO GROWTH AFTER 1 DAY Med Orders - Current: Current Medications Acetaminophen (Tylenol) 650 mg PO Q4H PRN PRN Reason: Pain Last Admin: 11/07/17 07:28 Dose: 650 mg Albuterol (Proventil Neb Soln) 2.5 mg NEB Q2H PRN PRN Reason: Shortness Of Breath/wheezing Last Admin: 11/07/17 09:55 Dose: 2.5 mg Ceftriaxone Sodium 1 gm/ (Sodium Chloride) 50 mls @ 100 mls/hr IV Q24H MAGDALENO Last Admin: 11/07/17 19:58 Dose: 100 mls/hr Ketorolac Tromethamine (Toradol) 15 mg IVPUSH Q8H PRN PRN Reason: Pain (moderate 4-6) Last Admin: 11/07/17 16:10 Dose: 15 mg Levofloxacin (Levaquin) 750 mg PO Q24H MAGDALENO Ondansetron HCl (Zofran) 4 mg IVPUSH Q4H PRN PRN Reason: Nausea Last Admin: 11/07/17 08:10 Dose: 4 mg Discontinued Medications Sodium Chloride (Normal Saline) 1,000 mls @ 999 mls/hr IV STAT ONE Stop: 11/06/17 20:08 Last Admin: 11/06/17 19:19 Dose: 999 mls/hr Ceftriaxone Sodium/Dextrose 1 (gm/ Premix) 50 mls @ 100 mls/hr IV ONETIME ONE Stop: 11/06/17 20:24 Last Admin: 11/07/17 01:25 Dose: Not Given Ceftriaxone Sodium 1,000 mg/ (Sodium Chloride) 50 mls @ 200 mls/hr IV Q24H MAGDALENO Sodium Chloride (Normal Saline) 1,000 mls @ 125 mls/hr IV ASDIRECTED MAGDALENO Last Admin: 11/08/17 04:41 Dose: 125 mls/hr Sodium Chloride (Normal Saline) 1,000 mls @ 999 mls/hr IV .Bolus ONE Stop: 11/07/17 08:21 Last Admin: 11/07/17 07:29 Dose: 999 mls/hr Ketorolac Tromethamine (Toradol) 30 mg IVPUSH ONETIME ONE Stop: 11/06/17 19:09 Last Admin: 11/06/17 19:19 Dose: 30 mg - Exam General: Reports: Alert, Oriented, Cooperative, No Acute Distress Lungs: Reports: Clear to Auscultation, Normal Respiratory Effort Cardiovascular: Reports: Regular Rate, Regular Rhythm GI/Abdominal Exam: Normal Bowel Sounds, Soft, Non-Tender, No Organomegaly, No Distention, No Abnormal Bruit, No Mass, Pelvis Stable Back Exam: Reports: Normal Inspection, Full Range of Motion. Denies: CVA Tenderness (L), CVA Tenderness (R) Neurological: Reports: No New Focal Deficit Psy/Mental Status: Reports: Alert, Normal Affect, Normal Mood
== END 2017-11-08 11:00 | disposition home or self-care (01) ==
LOC: MW.ED 18:41 → MW.MS 21:01 → MW.ED 21:38
PROVIDERS: ADMIT Internal Medicine; ATTEND Internal Medicine
DX: N10 Acute pyelonephritis (principal); F17.210 Nicotine dependence, cigarettes, uncomplicated; J45.20 Mild intermittent asthma, uncomplicated; F19.10 Other psychoactive substance abuse, uncomplicated; B96.20 Unspecified Escherichia coli [E. coli] as the cause of diseases classified elsewhere
CPT/HCPCS: 36415; 71046; 74176; 80048; 80053; 81001; 81025; 83605; 85025; 87040; 87086; 87088; 87186; 87804; 94640; 96361; 96374; 96375; 96376; 99285; A9270; G0378; J0696; J1885; J2405; J7040; J7050

== ENCOUNTER 2018-11-15 01:16 | Inpatient (IN) | payer MEDICAID ==
[2018-11-15] MEDS ORDERED: Misoprostol 200 MCG Tab PO PRN (02:39)
[2018-11-15] MEDS ORDERED: Sodium Chloride 0.9% 2.5 ML Syringe FLUSH PRN (02:39)
[2018-11-15] MEDS ORDERED: Water For Irrigation,Sterile 1,000 ML Container IRR PRN (02:39)
[2018-11-15] MEDS ORDERED: Tranexamic Acid 1,000 MG in Sodium Chloride 0.9% 100 ML IV PRN (02:39)
[2018-11-15] MEDS ORDERED: Ondansetron 4 MG/2 ML SDV IV PRN (02:39)
[2018-11-15] MEDS ORDERED: Methylergonovine 0.2 MG/1 ML Amp IM PRN (02:39)
[2018-11-15] MEDS ORDERED: Butorphanol 1 MG/ML SDV IVPUSH PRN (02:39)
[2018-11-15] MEDS ORDERED: Sodium Chloride 0.9% 10 ML SDV IV PRN (02:39)
[2018-11-15] MEDS ORDERED: Carboprost Tromethamine 250 MCG/1 ML Amp IM PRN (02:39)
[2018-11-15] MEDS ORDERED: Lidocaine 1% 50 ML MDV INJECT PRN (02:39)
[2018-11-15] MEDS ORDERED: Sodium Chloride 0.9% 10 ML Syringe FLUSH PRN (02:39)
[2018-11-15] MEDS ORDERED: Oxytocin/0.9 % Sodium Chloride 30 UNIT/500 ML BAG IV SCH (02:45)
[2018-11-15] MEDS ORDERED: Misoprostol 25 MCG (1/4 of 100 MCG) Tab PO ONE (08:23)
--- NOTE | 2018-11-15 08:23 | PCM.LDHP ---
L&D History of Present Illness - General Date of Service: 11/15/18 Admit Problem/Dx: Patient Status Order with Admit Dx/Problem 11/15/18 01:46 Patient Status [ADT] Routine 11/15/18 02:39 Patient Status [ADT] Routine Admission Diagnosis/Problem Admission Diagnosis/Problem 11/15/18 08:17 23 yo at 37 +2 weeks, presenting following SROM @ 0055; GBS neg/O+/RI Source of Information: Patient History Limitations: Reports: No Limitations - History of Present Illness Timing/Duration: Reports: minutes: Location, : Reports: Abdomen Severity: Mild - Related Data Allergies/Adverse Reactions: Allergies Allergy/AdvReac Type Severity Reaction Status Date / Time No Known Allergies Allergy Verified 11/06/17 19:00 Home Medications: Home Meds Albuterol [Ventolin HFA] 1 - 2 puff INH Q4H PRN #1 inhaler 11/08/17 [Rx] levoFLOXacin [Levaquin] 750 mg PO DAILY #8 tab 11/08/17 [Rx] Past Medical History - Past Health History Medical/Surgical History: Denies Medical/Surgical History Cardiovascular History: 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 Respiratory History: Reports: Asthma Gastrointestinal History: 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 Genitourinary History: 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: 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 History: 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 Neurological History: 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 Psychiatric History: Reports: Addiction, Anxiety, Depression Endocrine/Metabolic History: 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 - Infectious Disease History Infectious Disease History: Reports: Chicken Pox - Past Surgical History HEENT Surgical History: Reports: Oral Surgery Respiratory Surgical History: 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 GI Surgical History: 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 Surgical History: Reports: Other (See Below) Other 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 Surgeries/Procedures:: wrist surgery in 2013 Social & Family History - Family History Family Medical History: Noncontributory - Tobacco Use Smoking Status *Q: Current Every Day Smoker Years of Tobacco use: 6 Packs/Tins Daily: 0.5 Used Tobacco, but Quit: Yes Month/Year Tobacco Last Used: 10 months Second Hand Smoke Exposure: No - Caffeine Use Caffeine Use: Reports: Coffee - Recreational Drug Use Recreational Drug Use: No Other Recreational Drug Type: Patient stated she used recreational drug prior to - Living Situation & Occupation Living situation: Reports: Single, Other (reports being homeless.) Occupation: Unemployed H&P Review of Systems - Review of Systems: Review Of Systems: See Below General: Reports: No Symptoms HEENT: Reports: No Symptoms Pulmonary: Reports: No Symptoms Cardiovascular: Reports: No Symptoms Gastrointestinal: Reports: No Symptoms Genitourinary: Reports: No Symptoms 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: Reports: No Symptoms Skin: Reports: No Symptoms Psychiatric: Reports: No Symptoms Neurological: Reports: No Symptoms Hematologic/Lymphatic: Reports: No Symptoms Immunologic: Reports: No Symptoms L&D Exam - Exam Exam: See Below - Vital Signs Weight: 90.718 kg - OB Specific Contraction Intensity: Mild Movement: Active Heart Tones: Present Presentation: Vertex - Gay Score Gay Score Cervix Position: Midposition Gay Score Consistency: Soft Gay Score Effacement: >80% Gay Score Dilation: 1-2 cm Gay Score Infant's Station: -1 ,0 Gay Score Total: 9 - Exam General: Alert, Oriented, Cooperative HEENT: Hearing Intact Lungs: Normal Respiratory Effort GI/Abdominal Exam: Soft, Non-Tender Rectal Exam: Deferred Genitourinary: Normal external exam, Normal bimanual exam, Cervical dilitation, Cervical fluid. No: Vaginal bleeding Back Exam: Full Range of Motion Extremities: Normal Range of Motion Skin: Warm, Dry, Intact Neurological: Cranial Nerves Intact, Normal Gait, Normal Speech, Normal Tone Psychiatric: Alert, Normal Affect, Normal Mood - Patient Data Lab Results Last 24 hrs: Laboratory Results - last 24 hr 11/15/18 11/15/18 11/15/18 Range/Units 01:33 03:00 03:00 WBC 9.51 (4.0-11.0) K/uL RBC 3.70 L (4.30-5.90) M/uL Hgb 11.4 L (12.0-16.0) g/dL Hct 33.7 L (36.0-46.0) % MCV 91.1 (80.0-98.0) fL MCH 30.8 (27.0-32.0) pg MCHC 33.8 (31.0-37.0) g/dL RDW Std Deviation 42.5 (28.0-62.0) fl RDW Coeff of Nicole 13 (11.0-15.0) % Plt Count 196 (150-400) K/uL MPV 12.10 H (7.40-12.00) fL Nucleated RBC % 0.0 /100WBC Nucleated RBCs # 0 K/uL Membrane Rupture POSITIVE Blood Type O POSITIVE Antibody Screen NEGATIVE Result Diagrams: 11/15/18 03:00 - Problem List (1) Supervision of normal IUP (intrauterine ) in primigravida SNOMED Code(s): 45099026, 131742614, 227505808, 799388169 ICD Code: Z34.00 - ENCNTR FOR SUPRVSN OF NORMAL FIRST , UNSP TRIMESTER Status: Acute Priority: High Current Visit: Yes Qualifiers: Trimester: third trimester Qualified Code(s): Z34.03 - Encounter for supervision of normal first , third trimester Problem List Initiated/Reviewed/Updated: Yes Orders Last 24hrs: Active Orders 24 hr Category Date Time Status Patient Status [ADT] Routine ADT 11/15/18 01:46 Active Patient Status [ADT] Routine ADT 11/15/18 02:39 Active Heart Tones [RC] CONTINUOUS Care 11/15/18 02:39 Active Non Stress Test [RC] PER UNIT ROUTINE Care 11/15/18 01:46 Active Non Stress Test [RC] PER UNIT ROUTINE Care 11/15/18 02:39 Active May Shower [RC] ASDIRECTED Care 11/15/18 02:39 Active Notify Provider [RC] PRN Care 11/15/18 02:39 Active Up ad Marita [RC] ASDIRECTED Care 11/15/18 01:46 Active Up ad Marita [RC] ASDIRECTED Care 11/15/18 02:39 Active Vaginal Exam [RC] Click to Edit Care 11/15/18 01:46 Active Vaginal Exam [RC] PRN Care 11/15/18 02:39 Active Vital Signs [RC] PER UNIT ROUTINE Care 11/15/18 01:46 Active Vital Signs [RC] PER UNIT ROUTINE Care 11/15/18 02:39 Active Butorphanol [Stadol] Med 11/15/18 02:39 Active 1 mg IVPUSH Q1H PRN Carboprost Tromethamine [Hemabate DS] Med 11/15/18 02:39 Active 250 mcg IM ASDIRECTED PRN Lactated Ringers [Ringers, Lactated] 1,000 ml Med 11/15/18 02:45 Active IV ASDIRECTED Lidocaine 1% [Xylocaine 1%] Med 11/15/18 02:39 Active 50 ml INJECT ONETIME PRN Methylergonovine [Methergine] Med 11/15/18 02:39 Active 0.2 mg IM ASDIRECTED PRN Nalbuphine [Nubain] Med 11/15/18 02:39 Active 10 mg IVPUSH Q1H PRN Ondansetron [Zofran] Med 11/15/18 02:39 Active 4 mg IV Q4H PRN Oxytocin/0.9 % Sodium Chloride [Oxytocin 30 Unit/500 ML Med 11/15/18 02:45 Active -NS] 30 unit in 500 ml IV TITRATE Sodium Chloride 0.9% [Normal Saline] Med 11/15/18 02:39 Active 10 ml IV ASDIRECTED PRN Sodium Chloride 0.9% [Saline Flush] Med 11/15/18 02:39 Active 10 ml FLUSH ASDIRECTED PRN Sodium Chloride 0.9% [Saline Flush] Med 11/15/18 02:39 Active 2.5 ml FLUSH ASDIRECTED PRN Tranexamic Acid [Cyklokapron] 1,000 mg Med 11/15/18 02:39 Active Sodium Chloride 0.9% [Normal Saline] 100 ml IV ONETIME Water For Irrigation,Sterile [Sterile Water for Med 11/15/18 02:39 Active Irrigation] 1,000 ml IRR ASDIRECTED PRN miSOPROStol [Cytotec] Med 11/15/18 02:39 Active 200 mcg PO ONETIME PRN Scalp Electrode [WOMSER] Per Unit Routine Oth 11/15/18 02:39 Ordered Peripheral IV Insertion Adult [OM.PC] Routine Oth 11/15/18 02:39 Ordered Resuscitation Status Routine Resus Stat 11/15/18 01:46 Ordered Medication Orders Butorphanol Tartrate (Stadol) 1 mg IVPUSH Q1H PRN PRN Reason: Pain Carboprost Tromethamine (Hemabate Ds) 250 mcg IM ASDIRECTED PRN PRN Reason: Post Hemorrhage Tranexamic Acid 1,000 mg/ (Sodium Chloride) 110 mls @ 660 mls/hr IV ONETIME PRN PRN Reason: Bleeding Lactated Ringer's (Ringers, Lactated) 1,000 mls @ 150 mls/hr IV ASDIRECTED MAGDALENO Oxytocin/Sodium Chloride (Oxytocin 30 Unit/500 Ml-Ns) 30 unit in 500 mls @ 999 mls/hr IV TITRATE MAGDALENO Lidocaine HCl (Xylocaine 1%) 50 ml INJECT ONETIME PRN PRN Reason: Laceration repair Methylergonovine Maleate (Methergine) 0.2 mg IM ASDIRECTED PRN PRN Reason: Post Hemorrhage Misoprostol (Cytotec) 200 mcg PO ONETIME PRN PRN Reason: Post Hemorrhage Nalbuphine HCl (Nubain) 10 mg IVPUSH Q1H PRN PRN Reason: Pain (severe 7-10) Ondansetron HCl (Zofran) 4 mg IV Q4H PRN PRN Reason: Nausea/Vomiting Last Admin: 11/15/18 07:46 Dose: 4 mg Sodium Chloride (Saline Flush) 10 ml FLUSH ASDIRECTED PRN PRN Reason: Keep Vein Open Sodium Chloride (Saline Flush) 2.5 ml FLUSH ASDIRECTED PRN PRN Reason: Keep Vein Open Sodium Chloride (Normal Saline) 10 ml IV ASDIRECTED PRN PRN Reason: IV Use Sterile Water (Sterile Water For Irrigation) 1,000 ml IRR ASDIRECTED PRN PRN Reason: delivery Assessment/Plan Comment:: Admit A: 23 yo at 37 +2 weeks, presenting following SROM @ 0055; GBS neg/O+/RI P: Admit, cytotec to pitocin prn, epidural prn, anticipate , Dr. Christiano hernandez
[2018-11-15] MEDS: Nalbuphine 10 MG/1 ML Vial IVPUSH PRN ×2 (08:49→10:43)
[2018-11-15] MEDS: Lactated Ringers 1,000 ML IV SCH ×2 (11:47→12:38)
[2018-11-15] MEDS ORDERED: fentaNYL 100 MCG/2 ML SDV ONE (12:23)
--- NOTE | 2018-11-15 13:04 | PCM.PREANE ---
Preanesthetic Assessment - Anesthesia/Transfusion/Family Hx Anesthesia History: Prior Anesthesia Without Reaction Family History of Anesthesia Reaction: No Transfusion History: No Prior Transfusion(s) Intubation History: Unknown - Review of Systems General: No Symptoms Pulmonary: No Symptoms Cardiovascular: No Symptoms Gastrointestinal: No Symptoms Neurological: No Symptoms Other: 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 - Physical Assessment Respiratory Rate: 20 Vital Signs: Last Vital Signs Temp 36.1 C 11/15/18 11:42 Pulse 72 11/15/18 11:42 Resp 20 11/15/18 11:42 BP 140/82 11/15/18 11:42 Pulse Ox Height: 5 ft 8 in Weight: 90.718 kg ASA Class: 2 Mental Status: Alert & Oriented x3 Airway Class: Mallampati = 2 Dentition: Reports: Normal Dentition Thyro-Mental Finger Breadths: 3 Mouth Opening Finger Breadths: 3 ROM/Head Extension: Full Lungs: Clear to Auscultation, Normal Respiratory Effort Cardiovascular: Regular Rate, Regular Rhythm - Lab Values: Laboratory Last Values WBC 9.51 K/uL (4.0-11.0) 11/15/18 03:00 RBC 3.70 M/uL (4.30-5.90) L 11/15/18 03:00 Hgb 11.4 g/dL (12.0-16.0) L 11/15/18 03:00 Hct 33.7 % (36.0-46.0) L 11/15/18 03:00 MCV 91.1 fL (80.0-98.0) 11/15/18 03:00 MCH 30.8 pg (27.0-32.0) 11/15/18 03:00 MCHC 33.8 g/dL (31.0-37.0) 11/15/18 03:00 RDW Std Deviation 42.5 fl (28.0-62.0) 11/15/18 03:00 RDW Coeff of Nicole 13 % (11.0-15.0) 11/15/18 03:00 Plt Count 196 K/uL (150-400) 11/15/18 03:00 MPV 12.10 fL (7.40-12.00) H 11/15/18 03:00 Nucleated RBC % 0.0 /100WBC 11/15/18 03:00 Nucleated RBCs # 0 K/uL 11/15/18 03:00 Membrane Rupture POSITIVE 11/15/18 01:33 Blood Type O POSITIVE 11/15/18 03:00 Antibody Screen NEGATIVE 11/15/18 03:00 - Allergies Allergies/Adverse Reactions: Allergies Allergy/AdvReac Type Severity Reaction Status Date / Time No Known Allergies Allergy Verified 11/06/17 19:00 - Blood Blood Available: No - Anesthesia Plan Pre-Op Medication Ordered: None - Acknowledgements Anesthesia Type Planned: Epidural Pt an Appropriate Candidate for the Planned Anesthesia: Yes Alternatives and Risks of Anesthesia Discussed w Pt/Guardian: Yes Pt/Guardian Understands and Agrees with Anesthesia Plan: Yes PreAnesthesia Questionnaire - Past Health History Medical/Surgical History: Denies Medical/Surgical History Cardiovascular History: 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 Respiratory History: Reports: Asthma Gastrointestinal History: 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 Genitourinary History: 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: 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 Neurological History: 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 Psychiatric History: Reports: Addiction, Anxiety, Depression Endocrine/Metabolic History: 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 - Infectious Disease History Infectious Disease History: Reports: Chicken Pox - Past Surgical History HEENT Surgical History: Reports: Oral Surgery Respiratory Surgical History: 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 GI Surgical History: 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 Surgical History: Reports: Other (See Below) Other 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 Surgeries/Procedures:: wrist surgery in 2013 - SUBSTANCE USE Smoking Status *Q: Current Every Day Smoker Tobacco Use Within Last Twelve Months: Cigarettes Second Hand Smoke Exposure: No Recreational Drug Use History: No - HOME MEDS Home Medications: Home Meds Albuterol [Ventolin HFA] 1 - 2 puff INH Q4H PRN #1 inhaler 11/08/17 [Rx] levoFLOXacin [Levaquin] 750 mg PO DAILY #8 tab 11/08/17 [Rx] - CURRENT (IN HOUSE) MEDS Current Meds: Current Medications Butorphanol Tartrate (Stadol) 1 mg IVPUSH Q1H PRN PRN Reason: Pain Carboprost Tromethamine (Hemabate Ds) 250 mcg IM ASDIRECTED PRN PRN Reason: Post Hemorrhage Tranexamic Acid 1,000 mg/ (Sodium Chloride) 110 mls @ 660 mls/hr IV ONETIME PRN PRN Reason: Bleeding Lactated Ringer's (Ringers, Lactated) 1,000 mls @ 150 mls/hr IV ASDIRECTED MAGDALENO Last Admin: 11/15/18 12:38 Dose: 150 mls/hr Oxytocin/Sodium Chloride (Oxytocin 30 Unit/500 Ml-Ns) 30 unit in 500 mls @ 999 mls/hr IV TITRATE [facility] Lidocaine HCl (Xylocaine 1%) 50 ml INJECT ONETIME PRN PRN Reason: Laceration repair Methylergonovine Maleate (Methergine) 0.2 mg IM ASDIRECTED PRN PRN Reason: Post Hemorrhage Misoprostol (Cytotec) 200 mcg PO ONETIME PRN PRN Reason: Post Hemorrhage Nalbuphine HCl (Nubain) 10 mg IVPUSH Q1H PRN PRN Reason: Pain (severe 7-10) Last Admin: 11/15/18 10:43 Dose: 10 mg Ondansetron HCl (Zofran) 4 mg IV Q4H PRN PRN Reason: Nausea/Vomiting Last Admin: 11/15/18 07:46 Dose: 4 mg Sodium Chloride (Saline Flush) 10 ml FLUSH ASDIRECTED PRN PRN Reason: Keep Vein Open Sodium Chloride (Saline Flush) 2.5 ml FLUSH ASDIRECTED PRN PRN Reason: Keep Vein Open Sodium Chloride (Normal Saline) 10 ml IV ASDIRECTED PRN PRN Reason: IV Use Sterile Water (Sterile Water For Irrigation) 1,000 ml IRR ASDIRECTED PRN PRN Reason: delivery Discontinued Medications Fentanyl (Sublimaze) Confirm Administered Dose 100 mcg .ROUTE .STK-MED ONE Stop: 11/15/18 12:24 Fentanyl/Bupivacaine HCl (Amhusxtr-Vxysc-Jz 2 Mcg/Ml-0.125%) Confirm Administered Dose 100 mls @ as directed .ROUTE .STK-MED ONE Stop: 11/15/18 12:24 Misoprostol (Cytotec) 50 mcg PO ONETIME ONE Stop: 11/15/18 08:24 Last Admin: 11/15/18 08:43 Dose: 50 mcg
--- NOTE | 2018-11-15 17:20 | PCM.DEL ---
L & D Note - General Info Date of Service: 11/15/18 Mother's Due Date: 12/04/18 - Delivery Note Labor: Spontaneous Cervical Ripening Method: Misoprostil Delivery Outcome: Livebirth Delivery Method: Spontaneous Vaginal Delivery-Single Presentation: Vertex Nuchal Cord: None Anesthesia Type: Epidural Amniotic Fluid Description: Clear Episiotomy Type: None Laceration: 2nd Degree Suture type: Vicryl Suture size: 3-0 Placenta: Intact, Spontaneous Cord: 3 Vessels Estimated Blood Loss: 125 Resuscitation Needed: No : Stimulated, [place] Used Score 1 min: 9 Score 5 min: 9 Second Stage Interventions: Reports: Encouragement Given, Pushing Effectively, Pushing, Pulls Own Legs Back Delivery Comments (Free Text/Narrative):: , head delivered with good pushing, shoulders and body followed easily after , baby skin to skin on mom's abdomen, cord doubly clamped and cut after cessation of pulsing, pitocin to IVF, placenta delivered grossly intact, 3VC, EBL 135 mL, APGARs 9/9, 2nd degree perineal laceration repaired with 3-0 vicryl , mom and baby bonding well and left in stable condition with nurse at bedside for assessment Induction Criteria - Augmentation Estimated Pelvis: Reports: Adequate Weight Estimated:: Reports: AGA Reassuring Monitoring Strip: Yes Absence of Tachy Systole: Yes - General Info Date of Service: 11/15/18 Admission Dx/Problem (Free Text): Patient Status Order with Admit Dx/Problem 11/15/18 01:46 Patient Status [ADT] Routine 11/15/18 02:39 Patient Status [ADT] Routine Admission Diagnosis/Problem Admission Diagnosis/Problem 11/15/18 08:17 23 yo at 37 +2 weeks, presenting following SROM @ 0055; GBS neg/O+/RI Functional Status: Reports: Pain Controlled - Review of Systems General: Reports: No Symptoms HEENT: Reports: No Symptoms Pulmonary: Reports: No Symptoms Cardiovascular: Reports: No Symptoms Gastrointestinal: Reports: No Symptoms Genitourinary: Reports: No Symptoms 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: Reports: No Symptoms Skin: Reports: No Symptoms Neurological: Reports: No Symptoms Psychiatric: Reports: No Symptoms - Patient Data Vitals - Most Recent: Last Vital Signs Temp 36.1 C 11/15/18 11:42 Pulse 72 11/15/18 11:42 Resp 20 06/13/19 13:04 BP 140/82 11/15/18 11:42 Pulse Ox Weight - Most Recent: 90.718 kg Lab Results Last 24 Hours: Laboratory Results - last 24 hr 11/15/18 11/15/18 11/15/18 Range/Units 01:33 03:00 03:00 WBC 9.51 (4.0-11.0) K/uL RBC 3.70 L (4.30-5.90) M/uL Hgb 11.4 L (12.0-16.0) g/dL Hct 33.7 L (36.0-46.0) % MCV 91.1 (80.0-98.0) fL MCH 30.8 (27.0-32.0) pg MCHC 33.8 (31.0-37.0) g/dL RDW Std Deviation 42.5 (28.0-62.0) fl RDW Coeff of Nicole 13 (11.0-15.0) % Plt Count 196 (150-400) K/uL MPV 12.10 H (7.40-12.00) fL Nucleated RBC % 0.0 /100WBC Nucleated RBCs # 0 K/uL Membrane Rupture POSITIVE Blood Type O POSITIVE Antibody Screen NEGATIVE Med Orders - Current: Current Medications Butorphanol Tartrate (Stadol) 1 mg IVPUSH Q1H PRN PRN Reason: Pain Carboprost Tromethamine (Hemabate Ds) 250 mcg IM ASDIRECTED PRN PRN Reason: Post Hemorrhage Tranexamic Acid 1,000 mg/ (Sodium Chloride) 110 mls @ 660 mls/hr IV ONETIME PRN PRN Reason: Bleeding Lactated Ringer's (Ringers, Lactated) 1,000 mls @ 150 mls/hr IV ASDIRECTED [facility] Last Admin: 11/15/18 12:38 Dose: 150 mls/hr Oxytocin/Sodium Chloride (Oxytocin 30 Unit/500 Ml-Ns) 30 unit in 500 mls @ 999 mls/hr IV TITRATE [facility] Lidocaine HCl (Xylocaine 1%) 50 ml INJECT ONETIME PRN PRN Reason: Laceration repair Methylergonovine Maleate (Methergine) 0.2 mg IM ASDIRECTED PRN PRN Reason: Post Hemorrhage Misoprostol (Cytotec) 200 mcg PO ONETIME PRN PRN Reason: Post Hemorrhage Nalbuphine HCl (Nubain) 10 mg IVPUSH Q1H PRN PRN Reason: Pain (severe 7-10) Last Admin: 11/15/18 10:43 Dose: 10 mg Ondansetron HCl (Zofran) 4 mg IV Q4H PRN PRN Reason: Nausea/Vomiting Last Admin: 11/15/18 07:46 Dose: 4 mg Sodium Chloride (Saline Flush) 10 ml FLUSH ASDIRECTED PRN PRN Reason: Keep Vein Open Sodium Chloride (Saline Flush) 2.5 ml FLUSH ASDIRECTED PRN PRN Reason: Keep Vein Open Sodium Chloride (Normal Saline) 10 ml IV ASDIRECTED PRN PRN Reason: IV Use Sterile Water (Sterile Water For Irrigation) 1,000 ml IRR ASDIRECTED PRN PRN Reason: delivery Discontinued Medications Fentanyl (Sublimaze) Confirm Administered Dose 100 mcg .ROUTE .STK-MED ONE Stop: 11/15/18 12:24 Fentanyl/Bupivacaine HCl (Ttxojjte-Vekez-Rd 2 Mcg/Ml-0.125%) Confirm Administered Dose 100 mls @ as directed .ROUTE .STK-MED ONE Stop: 11/15/18 12:24 Misoprostol (Cytotec) 50 mcg PO ONETIME ONE Stop: 11/15/18 08:24 Last Admin: 11/15/18 08:43 Dose: 50 mcg - Exam General: Alert, Oriented, Cooperative, No Acute Distress Lungs: Normal Respiratory Effort GI/Abdominal Exam: Soft, Non-Tender (Female) Exam: Normal External Exam, Normal Bimanual Exam, Vaginal Bleeding Back Exam: Full Range of Motion Extremities: Normal Inspection Skin: Warm, Dry, Intact Neurological: No New Focal Deficit, Normal Speech Psy/Mental Status: Alert, Normal Affect, Normal Mood - Problem List & Annotations (1) Supervision of normal IUP (intrauterine ) in primigravida SNOMED Code(s): 17122227, 050898162, 595601202, 281498881 Code(s): Z34.00 - ENCNTR FOR SUPRVSN OF NORMAL FIRST , UNSP TRIMESTER Status: Acute Priority: High Current Visit: Yes Qualifiers: Trimester: third trimester Qualified Code(s): Z34.03 - Encounter for supervision of normal first , third trimester (2) (normal spontaneous vaginal delivery) SNOMED Code(s): 49330609, 264853754 Code(s): O80 - ENCOUNTER FOR FULL-TERM UNCOMPLICATED DELIVERY Status: Acute Priority: High Current Visit: Yes - Problem List Review Problem List Initiated/Reviewed/Updated: Yes - Plan Plan:: Admit A: 23 yo at 37 +2 weeks, presenting following SROM @ 0055; GBS neg/O+/RI P: Admit, cytotec to pitocin prn, epidural prn, anticipate , Dr. Alvarado updated Delivery A: , female, APGARS 9/9, 7 lb 3 oz., EBL 125 mL, 2nd degree laceration repaired P: Routine plan of care.
[2018-11-15] MEDS ORDERED: Lanolin 100% Cream 7 GM Tube TOP PRN (17:24)
[2018-11-15] MEDS ORDERED: Acetaminophen 500 MG Tab PO PRN ×2 (17:24)
[2018-11-15] MEDS ORDERED: Benzocaine/Menthol 20%-0.5% Spray 78 GM Cannister TOP PRN (17:24)
[2018-11-15] MEDS ORDERED: oxyCODONE 5 MG Tab PO PRN (17:24)
[2018-11-15] MEDS ORDERED: Docusate Sodium 100 MG Cap PO PRN (17:24)
[2018-11-15] MEDS ORDERED: Ibuprofen 400 MG Tab PO PRN (17:24)
[2018-11-15] MEDS ORDERED: Bisacodyl 10 MG Supp RECTAL PRN (17:24)
[2018-11-15] MEDS ORDERED: Witch Hazel Medicated Pads 40/Jar TOP PRN (17:24)
[2018-11-15] MEDS ORDERED: Ibuprofen 800 MG Tab PO PRN (17:24)
--- NOTE | 2018-11-16 07:56 | PCM48HPAN ---
Post Anesthesia Note - EVALUATION WITHIN 48HRS OF ANESTHETIC Vital Signs in Normal Range: Yes Patient Participated in Evaluation: Yes Respiratory Function Stable: Yes Airway Patent: Yes Cardiovascular Function Stable: Yes Hydration Status Stable: Yes Pain Control Satisfactory: Yes Nausea and Vomiting Control Satisfactory: Yes Mental Status Recovered: Yes Resp Rate: 17
--- NOTE | 2018-11-16 08:32 | PCM.DCSUM1 ---
Discharge Summary - Hospital Course Diagnosis: Stroke: No - Discharge Data Discharge Date: 11/16/18 Discharge Disposition: Home, Self-Care 01 Condition: Good - Patient Instructions Diet: Usual Diet as Tolerated Activity: As Tolerated Driving: Do Not Drive Showering/Bathing: May Shower - Discharge Plan Home Medications: Home Meds Albuterol [Ventolin HFA] 1 - 2 puff INH Q4H PRN #1 inhaler 11/08/17 [Rx] levoFLOXacin [Levaquin] 750 mg PO DAILY #8 tab 11/08/17 [Rx] - Discharge Summary/Plan Comment DC Time >30 min.: Yes - General Info Date of Service: 11/16/18 Functional Status: Reports: Pain Controlled - Review of Systems General: Reports: No Symptoms HEENT: Reports: No Symptoms Pulmonary: Reports: No Symptoms Cardiovascular: Reports: No Symptoms Gastrointestinal: Reports: No Symptoms Genitourinary: Reports: No Symptoms 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: Reports: No Symptoms Skin: Reports: No Symptoms Neurological: Reports: No Symptoms Psychiatric: Reports: No Symptoms - Patient Data Vitals - Most Recent: Last Vital Signs Temp 36.8 C 11/16/18 07:15 Pulse 76 11/16/18 07:15 Resp 17 11/16/18 07:55 BP 121/81 11/16/18 07:15 Pulse Ox 98 11/16/18 07:15 Weight - Most Recent: 90.718 kg Med Orders - Current: Current Medications Acetaminophen (Tylenol Extra Strength) 500 mg PO Q4H PRN PRN Reason: Pain Acetaminophen (Tylenol Extra Strength) 1,000 mg PO Q4H PRN PRN Reason: Pain Last Admin: 11/16/18 07:49 Dose: 1,000 mg Benzocaine/Menthol (Dermoplast Pain Relief 20%-0.5% [place]) 78 gm TOP ASDIRECTED PRN PRN Reason: Perineal Comfort Measure Last Admin: 11/15/18 17:49 Dose: 1 canister Bisacodyl (Dulcolax) 10 mg RECTAL ONETIME PRN PRN Reason: Constipation Docusate Sodium (Colace) 100 mg PO BID PRN PRN Reason: Constipation Last Admin: 11/15/18 17:51 Dose: 100 mg Emollient Ointment (Lansinoh Hpa) 0 gm TOP ASDIRECTED PRN PRN Reason: Sore Nipples Ibuprofen (Motrin) 400 mg PO Q4H PRN PRN Reason: Pain Ibuprofen (Motrin) 800 mg PO Q6H PRN PRN Reason: Pain Last Admin: 11/15/18 17:51 Dose: 800 mg Oxycodone HCl (Oxycodone) 5 mg PO Q2H PRN PRN Reason: Pain Witch Pattie (Tucks) 1 pad TOP ASDIRECTED PRN PRN Reason: comfort care Last Admin: 11/15/18 17:50 Dose: 1 tub Discontinued Medications Butorphanol Tartrate (Stadol) 1 mg IVPUSH Q1H PRN PRN Reason: Pain Carboprost Tromethamine (Hemabate Ds) 250 mcg IM ASDIRECTED PRN PRN Reason: Post Hemorrhage Fentanyl (Sublimaze) Confirm Administered Dose 100 mcg .ROUTE .STK-MED ONE Stop: 11/15/18 12:24 Tranexamic Acid 1,000 mg/ (Sodium Chloride) 110 mls @ 660 mls/hr IV ONETIME PRN PRN Reason: Bleeding Lactated Ringer's (Ringers, Lactated) 1,000 mls @ 150 mls/hr IV ASDIRECTED [facility] Last Admin: 11/15/18 12:38 Dose: 150 mls/hr Oxytocin/Sodium Chloride (Oxytocin 30 Unit/500 Ml-Ns) 30 unit in 500 mls @ 999 mls/hr IV TITRATE [facility] Last Admin: 11/15/18 16:42 Dose: 999 mls/hr Fentanyl/Bupivacaine HCl (Vbegpyvv-Ifkba-Bp 2 Mcg/Ml-0.125%) Confirm Administered Dose 100 mls @ as directed .ROUTE .STK-MED ONE Stop: 11/15/18 12:24 Lidocaine HCl (Xylocaine 1%) 50 ml INJECT ONETIME PRN PRN Reason: Laceration repair Methylergonovine Maleate (Methergine) 0.2 mg IM ASDIRECTED PRN PRN Reason: Post Hemorrhage Misoprostol (Cytotec) 200 mcg PO ONETIME PRN PRN Reason: Post Hemorrhage Misoprostol (Cytotec) 50 mcg PO ONETIME ONE Stop: 11/15/18 08:24 Last Admin: 11/15/18 08:43 Dose: 50 mcg Nalbuphine HCl (Nubain) 10 mg IVPUSH Q1H PRN PRN Reason: Pain (severe 7-10) Last Admin: 11/15/18 10:43 Dose: 10 mg Ondansetron HCl (Zofran) 4 mg IV Q4H PRN PRN Reason: Nausea/Vomiting Last Admin: 11/15/18 07:46 Dose: 4 mg Sodium Chloride (Saline Flush) 10 ml FLUSH ASDIRECTED PRN PRN Reason: Keep Vein Open Sodium Chloride (Saline Flush) 2.5 ml FLUSH ASDIRECTED PRN PRN Reason: Keep Vein Open Sodium Chloride (Normal Saline) 10 ml IV ASDIRECTED PRN PRN Reason: IV Use Sterile Water (Sterile Water For Irrigation) 1,000 ml IRR ASDIRECTED PRN PRN Reason: delivery - Exam General: Reports: Alert, Oriented HEENT: Reports: Pupils Equal, Pupils Reactive, EOMI, Mucous Membr. Moist/[place] Neck: Reports: Supple Lungs: Reports: Clear to Auscultation, Normal Respiratory Effort Cardiovascular: Reports: Regular Rate, Regular Rhythm GI/Abdominal Exam: Normal Bowel Sounds, Soft, Non-Tender, No Organomegaly, No Distention, No Abnormal Bruit, No Mass, Pelvis Stable (Female) Exam: Normal External Exam, Normal Speculum Exam, Normal Bimanual Exam Rectal (Female) Exam: Normal Exam, Normal Rectal Tone Back Exam: Reports: Normal Inspection, Full Range of Motion Extremities: Normal Inspection, Normal Range of Motion, Non-Tender, No Pedal Edema, Normal Capillary Refill Skin: Reports: Warm, Dry, Intact Wound/Incisions: Reports: Healing Well Neurological: Reports: No New Focal Deficit Psy/Mental Status: Reports: Alert, Normal Affect, Normal Mood
== END 2018-11-16 19:00 | disposition home or self-care (01) | DRG 807 ==
LOC: MW.OBCHECK 01:16 → MW.OB 01:17 → MW.OBCHECK 06:13 → OBSVTOIN 16:40 → MW.OB 11-16 02:54
PROVIDERS: ADMIT Obstetrics & Gynecology; ATTEND Obstetrics & Gynecology
PROC: 10E0XZZ Delivery of Products of Conception, External Approach (ICD-10-PCS; principal; 2018-11-15)
PROC: 0KQM0ZZ Repair Perineum Muscle, Open Approach (ICD-10-PCS; 2018-11-15)
PROC: 3E0P7VZ Introduction of Hormone into Female Reproductive, Via Natural or Artificial Opening (ICD-10-PCS; 2018-11-15)
PROC: 3E0S3BZ Introduction of Anesthetic Agent into Epidural Space, Percutaneous Approach (ICD-10-PCS; 2018-11-15)
PROC: 00HU33Z Insertion of Infusion Device into Spinal Canal, Percutaneous Approach (ICD-10-PCS; 2018-11-15)
DX: O99.52 Diseases of the respiratory system complicating childbirth (principal); Z37.0 Single live birth; O70.1 Second degree perineal laceration during delivery; Z3A.37 37 weeks gestation of pregnancy; J45.909 Unspecified asthma, uncomplicated; O99.334 Smoking (tobacco) complicating childbirth
CPT/HCPCS: 36415; 51702; 59025; 59409; 84112; 85027; 86850; 86900; 86901; A9270-GY; J2300; J2405; J2590; J7120

== ENCOUNTER 2020-09-07 19:51 | Emergency (ER) | payer SELFPAY | END 2020-09-07 20:53 | disposition left against medical advice (07) | LOC: MW.ED 19:51 | DX: Z53.21 Procedure and treatment not carried out due to patient leaving prior to being seen by health care provider (principal) ==

== ENCOUNTER 2022-05-12 01:22 | Emergency (ER) | payer MEDICAID | END 2022-05-12 01:36 | disposition left against medical advice (07) | LOC: MW.ED 01:22 | DX: Z53.21 Procedure and treatment not carried out due to patient leaving prior to being seen by health care provider (principal) ==

== ENCOUNTER 2022-11-25 14:07 | Emergency (ER) | payer MEDICAID ==
[2022-11-25] MEDS ORDERED: Sodium Chloride 0.9% 1,000 ML IV ONE (14:29)
[2022-11-25] MEDS ORDERED: Ondansetron 4 MG/2 ML SDV IVPUSH ONE (15:28)
[2022-11-25 15:58] LABS: BASOPHILS PERCENT AUTO 0.1 % (0.0-1.5); EOSINOPHILS PERCENT AUTO 0.5 % (0.0-7.0); HEMATOCRIT 38.4 % (36.0-46.0); HEMOGLOBIN 13.3 g/dL (12.0-16.0); LYMPHOCYTES ABSOLUTE AUTO 2.5 K/uL (0.6-2.4); LYMPHOCYTES PERCENT AUTO 34.3 % (16.0-40.0); MEAN CORPUSCULAR HEMOGLOBIN 30.1 pg (27.0-32.0); MEAN CORPUSCULAR HGB CONC 34.6 g/dL (31.0-37.0); MEAN CORPUSCULAR VOLUME 86.9 fL (80.0-98.0); MONOCYTES ABSOLUTE AUTO 0.5 K/uL (0.0-0.8); MONOCYTES PERCENT AUTO 7.2 % (0.0-15.0); NEUTROPHILS ABSOLUTE AUTO 4.3 K/uL (1.4-5.7); NEUTROPHILS PERCENT AUTO 57.9 % (48.0-80.0); NRBC ABSOLUTE 0 K/uL; PLATELET COUNT,PLT 252 K/uL (150-400); RED BLOOD CELL COUNT 4.42 M/uL (4.30-5.90); WHITE BLOOD CELL COUNT,WBC 7.37 K/uL (4.0-11.0)
[2022-11-25 16:08] LABS: APPEARANCE,URINE CLEAR; BILIRUBIN,URINE NEGATIVE (NEGATIVE); COLOR,URINE YELLOW; GLUCOSE,URINE NEGATIVE (NEGATIVE); KETONES,URINE >=80 mg/dL (NEGATIVE); LEUKOCYTE ESTERASE,URINE NEGATIVE (NEGATIVE); NITRITE,URINE NEGATIVE (NEGATIVE); OCCULT BLOOD,URINE NEGATIVE (NEGATIVE); PH,URINE 5.5 (5.0-8.0); PROTEIN,URINE NEGATIVE (NEGATIVE); UROBILINOGEN,URINE 0.2 EU/dL (<2.0)
[2022-11-25 16:52] LABS: ALBUMIN 3.7 g/dL (3.4-5.0); BILIRUBIN TOTAL 0.7 mg/dL (0.2-1.0); CALCIUM 9.3 mg/dL (8.5-10.1); CARBON DIOXIDE,CO2 22.3 mmol/L (21.0-32.0); CREATININE 0.7 mg/dL (0.6-1.0); EST CRCL DRUG DOSING (CG) 120.7 mL/min; PROTEIN TOTAL,TP 7.3 g/dL (6.4-8.2)
== END 2022-11-25 17:32 | disposition home or self-care (01) ==
LOC: MW.ED 14:07
DX: O21.9 Vomiting of pregnancy, unspecified (principal); O99.511 Diseases of the respiratory system complicating pregnancy, first trimester; J45.909 Unspecified asthma, uncomplicated; Z87.891 Personal history of nicotine dependence; Z79.899 Other long term (current) drug therapy; Z3A.01 Less than 8 weeks gestation of pregnancy
CPT/HCPCS: 36415; 80053; 81003; 84702; 85025; 96361; 96374; 99284; J2405; J7030